=== PATIENT | male | born 1935 | race Caucasian/White ===

== ENCOUNTER → 2016-07-09 | Outpatient (CLI) | payer MEDICARE, OTHER ==
--- NOTE | 2016-07-09 15:13 | CARDIOVASCULAR REPORT ---
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 IMPRESSIONS 1. The bilateral vertebral arteries are patent with normal antegrade flow. 2. Study suggests less than 20% stenosis involving the right internal carotid artery and the left internal carotid artery. History: Risk factors: Hypertension. Bilateral scotoma Carotid duplex study. Complete study and Doppler flow study including spectral analysis, color and wren scale imaging. Location: Vascular laboratory. Patient status: Outpatient. Tables: Arterial flow: + +--------+--------+ |Location |V sys |V ed | + +--------+--------+ |Right CCA - proximal|108cm/s |21.2cm/s| + +--------+--------+ |Right CCA - distal |80.1cm/s|17.3cm/s| + +--------+--------+ |Right ECA |139cm/s |--------| + +--------+--------+ |Right ICA - proximal|44cm/s |10.2cm/s| + +--------+--------+ |Right ICA - mid |81.7cm/s|22cm/s | + +--------+--------+ |Right ICA - distal |87.2cm/s|28.3cm/s| + +--------+--------+ |Right vertebral |55cm/s |--------| + +--------+--------+ |Left CCA - proximal |80.1cm/s|17.3cm/s| + +--------+--------+ |Left CCA - distal |72.3cm/s|18.9cm/s| + +--------+--------+ |Left ECA |118cm/s |--------| + +--------+--------+ |Left ICA - proximal |65.2cm/s|19.6cm/s| + +--------+--------+ |Left ICA - mid |74.6cm/s|24.4cm/s| + +--------+--------+ |Left ICA - distal |75.4cm/s|21.2cm/s| + +--------+--------+ |Left vertebral |71.5cm/s|--------| + +--------+--------+ Velocity ratios: + + + + + + | |Right, V sys|Right, V ed|Left, V sys|Left, V ed| + + + + + + |Max ICA/dist CCA|1.09 |1.64 |1.04 |1.29 | + + + + + + (Report amended ) Electronically signed by: Pete Gonzales [id number]"
== END ==
LOC: RT 14:05
DX: H53.413 Scotoma involving central area, bilateral (principal)